=== PATIENT | female | born 1970 ===

== ENCOUNTER 2025-10-02 17:16 | Emergency (ER) | payer MEDICAID ==
[~2025-10-02] VITALS: Ht 160 cm; Wt 72.6 kg
[2025-10-02 17:24] VITALS: BP 142/94
[2025-10-02 18:08] LABS: PLATELET COUNT (AUTO) 332 K/uL (179-408); RED BLOOD CELL COUNT(AUTO) 4.02 MIL/uL (3.63-4.92); RED CELL DISTRIBUTION WIDTH 14.2 % (12.3-17.7); WHITE BLOOD COUNT (AUTO) 7.1 K/uL (3.8-11.8)
[2025-10-02 18:21] LABS: CREATININE 0.5 mg/dL (0.6-1.3); SODIUM SERUM 138 mmol/L (136-145); UREA NITROGEN, BLOOD 19 mg/dL (7-18)
[2025-10-02 18:27] LABS: ASPARTATE AMINOTRANSFERASE 13 U/L (15-37); TOTAL PROTEIN, SERUM 7.5 g/dL (6.4-8.2)
[2025-10-02 18:33] LABS: *URINE HCG, QUAL NEGATIVE (NEGATIVE)
[2025-10-02] MEDS ORDERED: IBUP-1955 PO (19:10)
[2025-10-02 19:22] VITALS: BP 138/88; TEMP 98; O2SAT 98
== END 2025-10-02 19:23 | disposition home or self-care (01) ==
LOC: ER 17:26
DX: R10.20 Pelvic and perineal pain unspecified side (principal); Z79.899 Other long term (current) drug therapy
CPT/HCPCS: 36415; 72170; 76856; 84703; 85025